=== PATIENT | male | born 2000 | race Caucasian/White ===

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

== ENCOUNTER 2022-10-11 20:25 | Emergency (ER) | payer OTHER, SELFPAY ==
[2022-10-11 20:27] VITALS: BP 133/78; PULSE 73; RESP 16; TEMP 36.9; O2SAT 99
[2022-10-11] MEDS: TETANUS,DIPHTHERIA,AC PERTUSSIS ADULT (0.5 ML) BOOSTRIX IM (20:40)
[2022-10-11] MEDS: LIDO 1%/EPINEPHRINE 1:100,000 20 ML VIAL 10 ML INFILTRATE (21:08)
--- NOTE | 2022-10-11 21:13 | ED.GENADULT ---
HPI - General Adult General Chief complaint: Extremity Injury, Upper Stated complaint: fishing lure stuck in hand Time Seen by Provider: 10/11/22 20:32 History of Present Illness HPI narrative: this is a 22-year-old male presenting with a fishhook lodged in his right hand. unknown last tetanus. Related Data Allergies Allergy/AdvReac Type Severity Reaction Status Date / Time No Known Allergies Allergy Verified 10/11/22 20:26 [facility] Past Medical History Medical History Ulnar nerve entrapment at elbow Social History Social History Gender identity (if verbalized by the patient): Male Sexual Orientation (if Verbalized by the Patient): Straight or Heterosexual Exam Narrative: APPEARANCE: No apparent distress. Head: atraumatic. EYES: EOMI, NOSE: Atraumatic NECK: Trachea midline RESPIRATORY: No increased rate of breathing CARDIOVASCULAR: RRR, ABDOMINAL: Non-distended MUSCULOSKELETAl: Patient has a 3 pronged barbed fishhook in his right hand on this palmar surface just proximal to the 2nd digit. NEURO: Alert. Moving 4/4 extremities SKIN:: Warm, dry. Normal color PSYCHIATRIC: Normal affect Course Vital Signs Vital signs: Vital Signs Temperature 98.5 F 10/11/22 20:27 Pulse Rate 73 10/11/22 20:27 Respiratory Rate 16 10/11/22 20:27 Blood Pressure 133/78 10/11/22 20:27 Pulse Oximetry 99 10/11/22 20:27 Oxygen Delivery Room Air 10/11/22 20:27 Temperature 98.5 F 10/11/22 20:27 Pulse Rate 73 10/11/22 20:27 Respiratory Rate 16 10/11/22 20:27 Blood Pressure 133/78 10/11/22 20:27 Pulse Oximetry 99 10/11/22 20:27 Oxygen Delivery Room Air 10/11/22 20:27 Procedures Foreign Body Removal Foreign Body #1: Foreign Body Removal Date: 10/11/22 Time Out Performed: yes Site: right and hand Description of foreign body: fish hook Sedation/Analgesia: none Technique: manual removal Confirmed by:: direct visualization Complications: none Post-procedure exam: awake, alert Neurovascular: normal distal pulse, normal capillary fill, distal light touch sensation intact, distal motor function normal, no signs of compartment syndrome and no change from pre-procedure Medical Decision Making MDM Narrative Medical decision making narrative: -Presentation: 22-year-old with fishhook injury -DDX includes but is not limited to: soft tissue injury, foreign body -Co-morbidities complicating care: none -Social determinants of health: patient works as union labor. Lives with his father. -Hx from independent Sources: Father bedside -Procedures: fishhook removal -Interventions: 5 cc lidocaine with epi, Tdap -Shared decision making / Disposition: patient will be discharged with antibiotics and return precautions for infection. -RX Motrin, Tylenol, Cipro Vital Signs Vital Signs: Vital Signs Temperature 98.5 F 10/11/22 20:27 Pulse Rate 73 10/11/22 20:27 Respiratory Rate 16 10/11/22 20:27 Blood Pressure 133/78 10/11/22 20:27 Pulse Oximetry 99 10/11/22 20:27 Oxygen Delivery Room Air 10/11/22 20:27 Temperature 98.5 F 10/11/22 20:27 Pulse Rate 73 10/11/22 20:27 Respiratory Rate 16 10/11/22 20:27 Blood Pressure 133/78 10/11/22 20:27 Pulse Oximetry 99 10/11/22 20:27 Oxygen Delivery Room Air 10/11/22 20:27 Discharge Plan Discharge Clinical Impression: Fish hook in hand Patient Disposition: Home, Self-Care Condition: Stable Instructions: Antibiotic Form, Laceration (DC) Additional Instructions: please take Motrin Tylenol for pain. Please complete a 10 day course of Cipro. Please return if you develop signs of infection. Prescriptions: New acetaminophen 500 mg tablet 1,000 mg PO TID PRN (Reason: obie) 7 Days Qty: 42 0RF ibuprofen
== END 2022-10-11 21:34 | disposition home or self-care (01) ==
PROVIDERS: Emergency Provider Emergency Medicine; PCP Nurse Practitioner Family
DX: S61.442A Puncture wound with foreign body of left hand, initial encounter (principal); Z23 Encounter for immunization; W45.8XXA Other foreign body or object entering through skin, initial encounter
CPT/HCPCS: 90471; 90715; 99283